=== PATIENT | female | born 2000 | race Caucasian/White ===

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

== ENCOUNTER 2021-09-12 22:17 | Inpatient (IN) | payer BC, OTHER ==
[~2021-09-12] VITALS: Ht 162.6 cm; Wt 97.5 kg
[2021-09-12] MEDS ORDERED: HYDR-3363 PO (22:29)
[2021-09-12] MEDS ORDERED: CITA20TA6 PO (22:29)
[2021-09-12] MEDS ORDERED: ISIB1TAB PO (22:29)
[2021-09-12] MEDS ORDERED: PANTOPRAZOLE 40MG VIAL IV ONE (23:45)
[2021-09-12] MEDS ORDERED: NS 1,000 ML IV ONE (23:45)
[2021-09-13 00:05] LABS: HCG, SERUM QUALITATIVE NEGATIVE (NEGATIVE)
[2021-09-13 00:14] LABS: BASO % 0.3 % (0.0-1.0); EOS # 0.1 10^3/uL (0.0-0.5); EOS % 1.3 % (0.0-3.0); HEMATOCRIT 38.6 % (36.0-47.0); HEMOGLOBIN 12.2 g/dl (12.0-15.5); LYMPH # 2.2 10^3/uL (1.5-5.0); LYMPH % 23.1 % (24.0-44.0); MEAN CORPUSCULAR HEMOGLOBIN 26.5 pg (27.0-33.0); MEAN CORPUSCULAR HGB CONC 31.6 g/dl (32.0-36.5); MEAN CORPUSCULAR VOLUME 83.7 fl (80.0-96.0); MONO # 0.5 10^3/uL (0.0-0.8); MONO % 5.5 % (2.0-8.0); NEUTROPHILS # 6.5 10^3/uL (1.5-8.5); NEUTROPHILS % 69.1 % (36.0-66.0); PLATELET COUNT, AUTOMATED 341 10^3/uL (150-450); RED BLOOD COUNT 4.61 10^6/uL (4.00-5.40); WHITE BLOOD COUNT 9.4 10^3/uL (4.0-10.0)
[2021-09-13 00:15] LABS: ALBUMIN 3.3 GM/DL (3.2-5.2); ALT/SGPT 58 U/L (12-78); BILIRUBIN,DIRECT 0.1 MG/DL (0.0-0.2); BILIRUBIN,TOTAL 0.3 MG/DL (0.2-1.0); BLOOD UREA NITROGEN 7 MG/DL (7-18); CALCIUM LEVEL 8.9 MG/DL (8.5-10.1); CARBON DIOXIDE LEVEL 27 MEQ/L (21-32); CHLORIDE LEVEL 109 MEQ/L (98-107); CREATININE FOR GFR 0.77 MG/DL (0.55-1.30); GLUCOSE, FASTING 92 MG/DL (70-100); LIPASE 1170 U/L (73-393); POTASSIUM SERUM 3.9 MEQ/L (3.5-5.1); SODIUM LEVEL 139 MEQ/L (136-145); TOTAL PROTEIN 6.5 GM/DL (6.4-8.2)
[2021-09-13] MEDS ORDERED: HOME MED LIST COMPLETE! XX SCH (01:40)
[2021-09-13] MEDS ORDERED: ACETAMINOPHEN TAB 650MG DOSE (2X325MG) PO PRN (01:45)
[2021-09-13] MEDS ORDERED: MAALOX 30 ML SUSP *UDC PO PRN (01:45)
[2021-09-13] MEDS ORDERED: MOM 30ML SUSPENSION UDC PO PRN (01:45)
[2021-09-13 01:54] LABS: RSV AMPLIFICATION NEGATIVE (NEGATIVE)
[2021-09-13] MEDS ORDERED: NORCO, ANEXSIA 5/325MG TABLET (HYDROcodone/ACETAMINOPHEN) PO PRN (02:00)
[2021-09-13] MEDS ORDERED: MORPHINE 4 MG/ML 1ML VIAL/SYRINGE IV PRN (02:00)
[2021-09-13 03:15] VITALS: BP 128/72
[2021-09-13] MEDS: NS 1,000 ML IV SCH ×4 (05:07→21:21)
[2021-09-13 06:22] LABS: BASO % 0.2 % (0.0-1.0); EOS # 0.1 10^3/uL (0.0-0.5); EOS % 1.3 % (0.0-3.0); HEMATOCRIT 35.4 % (36.0-47.0); HEMOGLOBIN 11.5 g/dl (12.0-15.5); LYMPH # 2.9 10^3/uL (1.5-5.0); LYMPH % 31.2 % (24.0-44.0); MEAN CORPUSCULAR HEMOGLOBIN 26.7 pg (27.0-33.0); MEAN CORPUSCULAR HGB CONC 32.5 g/dl (32.0-36.5); MEAN CORPUSCULAR VOLUME 82.1 fl (80.0-96.0); MONO # 0.5 10^3/uL (0.0-0.8); MONO % 5.9 % (2.0-8.0); NEUTROPHILS # 5.6 10^3/uL (1.5-8.5); NEUTROPHILS % 61.1 % (36.0-66.0); PLATELET COUNT, AUTOMATED 308 10^3/uL (150-450); RED BLOOD COUNT 4.31 10^6/uL (4.00-5.40); WHITE BLOOD COUNT 9.2 10^3/uL (4.0-10.0)
[2021-09-13 06:47] LABS: ALBUMIN 2.9 GM/DL (3.2-5.2); ALT/SGPT 45 U/L (12-78); BILIRUBIN,TOTAL 0.3 MG/DL (0.2-1.0); BLOOD UREA NITROGEN 6 MG/DL (7-18); CALCIUM LEVEL 8.5 MG/DL (8.5-10.1); CARBON DIOXIDE LEVEL 22 MEQ/L (21-32); CHLORIDE LEVEL 113 MEQ/L (98-107); GLUCOSE, FASTING 76 MG/DL (70-100); MAGNESIUM LEVEL 1.9 MG/DL (1.8-2.4); POTASSIUM SERUM 3.6 MEQ/L (3.5-5.1); SODIUM LEVEL 141 MEQ/L (136-145); TOTAL PROTEIN 6.1 GM/DL (6.4-8.2)
[2021-09-13 07:13] VITALS: BP 125/77
[2021-09-13] MEDS: KETOROLAC 30 MG/ML 1ML VIAL IV SCH ×2 (09:10→12:00)
[2021-09-13 10:28] LABS: LIPASE 590 U/L (73-393)
[2021-09-13] MEDS ORDERED: KETOROLAC 30 MG/ML 1ML VIAL IV PRN (15:00)
[2021-09-13 16:17] VITALS: BP 116/62
[2021-09-13 20:13] VITALS: BP 136/87
[2021-09-13] MEDS ORDERED: CitaloPRAM (CeleXA) 20 MG TAB PO SCH (21:00)
[2021-09-14 04:10] VITALS: BP 113/61
[2021-09-14] MEDS: NS 1,000 ML IV SCH (04:25)
[2021-09-14] MEDS ORDERED: HYDR-3715 PO ×2 (07:43→10:17)
[2021-09-14] MEDS ORDERED: SENO8.6T10 PO (07:46)
[2021-09-14 07:48] VITALS: BP 115/58
[2021-09-14 08:09] LABS: BASO % 0.1 % (0.0-1.0); EOS # 0.1 10^3/uL (0.0-0.5); EOS % 1.6 % (0.0-3.0); HEMATOCRIT 37.6 % (36.0-47.0); HEMOGLOBIN 11.9 g/dl (12.0-15.5); LYMPH # 2.7 10^3/uL (1.5-5.0); LYMPH % 35.1 % (24.0-44.0); MEAN CORPUSCULAR HEMOGLOBIN 26.4 pg (27.0-33.0); MEAN CORPUSCULAR HGB CONC 31.6 g/dl (32.0-36.5); MEAN CORPUSCULAR VOLUME 83.6 fl (80.0-96.0); MONO # 0.5 10^3/uL (0.0-0.8); MONO % 6.6 % (2.0-8.0); NEUTROPHILS # 4.3 10^3/uL (1.5-8.5); NEUTROPHILS % 56.5 % (36.0-66.0); PLATELET COUNT, AUTOMATED 310 10^3/uL (150-450); WHITE BLOOD COUNT 7.6 10^3/uL (4.0-10.0)
[2021-09-14 08:33] LABS: ALBUMIN 3.1 GM/DL (3.2-5.2); ALT/SGPT 32 U/L (12-78); AMYLASE 91 U/L (25-115); BILIRUBIN,TOTAL 0.3 MG/DL (0.2-1.0); BLOOD UREA NITROGEN 4 MG/DL (7-18); CALCIUM LEVEL 9.2 MG/DL (8.5-10.1); CARBON DIOXIDE LEVEL 24 MEQ/L (21-32); CHLORIDE LEVEL 111 MEQ/L (98-107); CREATININE FOR GFR 0.68 MG/DL (0.55-1.30); GLUCOSE, FASTING 82 MG/DL (70-100); LIPASE 311 U/L (73-393); SODIUM LEVEL 142 MEQ/L (136-145); TOTAL PROTEIN 6.1 GM/DL (6.4-8.2)
== END 2021-09-14 10:54 | disposition home or self-care (01) ==
LOC: M ED 22:17 → M ED INP 09-13 01:45 → M PCU 09-13 03:23
PROVIDERS: ADMIT Family Medicine; ATTEND General Practice
DX: K80.20 Calculus of gallbladder without cholecystitis without obstruction (principal); K85.10 Biliary acute pancreatitis without necrosis or infection; F32.A Depression, unspecified; F17.290 Nicotine dependence, other tobacco product, uncomplicated; E66.9 Obesity, unspecified; Z68.37 Body mass index [BMI] 37.0-37.9, adult; Z79.899 Other long term (current) drug therapy; Z88.1 Allergy status to other antibiotic agents

== ENCOUNTER 2021-10-11 16:50 | Inpatient (IN) | payer BC, OTHER ==
[~2021-10-11] VITALS: Ht 165.1 cm; Wt 94.8 kg
[~2021-10-11 16:50] MED LIST changes: +CITA20TA6 PO; +HYDR-3363 PO; +HYDR-3715 PO; +ISIB1TAB PO; +SENO8.6T10 PO
[2021-10-11] MEDS ORDERED: ACET-683 PO (17:00)
[2021-10-11] MEDS ORDERED: ONDANSETRON 4MG 2ML VIAL IV ONE (17:10)
[2021-10-11] MEDS ORDERED: NS 1,000 ML IV ONE (17:10)
[2021-10-11] MEDS ORDERED: KETOROLAC 30 MG/ML 1ML VIAL IV ONE (17:10)
[2021-10-11 17:35] LABS: BASO % 0.3 % (0.0-1.0); EOS # 0.1 10^3/uL (0.0-0.5); HEMATOCRIT 40.3 % (36.0-47.0); LYMPH # 1.6 10^3/uL (1.5-5.0); LYMPH % 21.2 % (24.0-44.0); MEAN CORPUSCULAR HEMOGLOBIN 26.6 pg (27.0-33.0); MEAN CORPUSCULAR HGB CONC 32.3 g/dl (32.0-36.5); MEAN CORPUSCULAR VOLUME 82.4 fl (80.0-96.0); MONO # 0.5 10^3/uL (0.0-0.8); MONO % 5.8 % (2.0-8.0); NEUTROPHILS # 5.5 10^3/uL (1.5-8.5); NEUTROPHILS % 71.4 % (36.0-66.0); PLATELET COUNT, AUTOMATED 307 10^3/uL (150-450); RED BLOOD COUNT 4.89 10^6/uL (4.00-5.40); WHITE BLOOD COUNT 7.7 10^3/uL (4.0-10.0)
[2021-10-11 18:17] LABS: ALBUMIN 3.6 GM/DL (3.2-5.2); BILIRUBIN,DIRECT 0.9 MG/DL (0.0-0.2); BILIRUBIN,TOTAL 1.3 MG/DL (0.2-1.0); TOTAL PROTEIN 6.8 GM/DL (6.4-8.2)
[2021-10-11 18:24] LABS: RSV AMPLIFICATION NEGATIVE (NEGATIVE)
[2021-10-11] MEDS ORDERED: MORPHINE 4 MG/ML 1ML VIAL/SYRINGE IV ONE (19:40)
[2021-10-11 21:10] LABS: AMORPHOUS SEDIMENT, URINE SMALL AMOUNT (NEGATIVE); HYALINE CAST, URINE NONE SEEN /lpf (0-1); MUCUS, URINE SMALL AMOUNT (NEGATIVE); RBC, URINE 0-1 /hpf (0-3); SQUAMOUS EPITHELIAL CELL URINE MOD AMOUNT /hpf (SMALL AMT)
[2021-10-11 21:11] LABS: BACTERIA, URINE SMALL AMOUNT
[2021-10-11] MEDS ORDERED: MOM 30ML SUSPENSION UDC PO PRN (21:40)
[2021-10-11] MEDS ORDERED: ACETAMINOPHEN TAB 650MG DOSE (2X325MG) PO PRN (21:40)
[2021-10-11] MEDS ORDERED: HOME MED LIST COMPLETE! XX SCH (22:15)
[2021-10-11] MEDS ORDERED: HYDR-3713 PO (22:15)
[2021-10-11] MEDS ORDERED: HYDR-3363 PO (22:15)
[2021-10-11] MEDS ORDERED: ERGO500029 PO (22:15)
[2021-10-12] MEDS: NS 1,000 ML IV SCH ×2 (00:46→05:22)
[2021-10-12] MEDS: HEPARIN SOD (PORCINE) 5000UNITS/ML 1ML VIAL/SYRINGE SC SCH ×3 (06:00→21:14)
[2021-10-12 06:58] LABS: HEMATOCRIT 36.5 % (36.0-47.0); HEMOGLOBIN 11.3 g/dl (12.0-15.5); MEAN CORPUSCULAR VOLUME 84.1 fl (80.0-96.0); PLATELET COUNT, AUTOMATED 271 10^3/uL (150-450); RED BLOOD COUNT 4.34 10^6/uL (4.00-5.40); WHITE BLOOD COUNT 6.6 10^3/uL (4.0-10.0)
[2021-10-12 07:39] LABS: ALT/SGPT 111 U/L (12-78); BILIRUBIN,TOTAL 0.5 MG/DL (0.2-1.0); BLOOD UREA NITROGEN 5 MG/DL (7-18); CALCIUM LEVEL 8.6 MG/DL (8.5-10.1); CARBON DIOXIDE LEVEL 28 MEQ/L (21-32); CHLORIDE LEVEL 110 MEQ/L (98-107); CREATININE FOR GFR 0.61 MG/DL (0.55-1.30); GLUCOSE, FASTING 77 MG/DL (70-100); POTASSIUM SERUM 3.6 MEQ/L (3.5-5.1); SODIUM LEVEL 142 MEQ/L (136-145); TOTAL PROTEIN 5.6 GM/DL (6.4-8.2)
[2021-10-12] MEDS: DOCUSATE SODIUM 100MG CAPSULE PO SCH ×2 (08:09→21:14)
[2021-10-12 08:50] VITALS: BP 115/77
[2021-10-12] MEDS ORDERED: ISOVUE-300 61% 50ML VIAL As Ordered ONE (15:35)
[2021-10-12] MEDS ORDERED: fentaNYL 100 MCG/2 ML INJECTION As Ordered ONE ×2 (15:51→17:15)
[2021-10-12] MEDS ORDERED: MIDAZOLAM INJ 2MG/2ML VIAL (J2250 PER 1MG) As Ordered ONE (15:51)
[2021-10-12] MEDS ORDERED: LIDOCAINE 2% 100MG/5ML SDV (FOR ANES.) As Ordered ONE (15:51)
[2021-10-12] MEDS ORDERED: ROCURONIUM BROMIDE 50 MG/5 ML VIAL As Ordered ONE (15:51)
[2021-10-12] MEDS ORDERED: ONDANSETRON 4MG 2ML VIAL As Ordered ONE (15:51)
[2021-10-12] MEDS ORDERED: propofoL 200 MG/20 ML VIAL As Ordered ONE (15:51)
[2021-10-12] MEDS ORDERED: dexameTHASONE 4 MG/ML 1ML VIAL (J1100 PER 1MG) As Ordered ONE (15:51)
[2021-10-12] MEDS ORDERED: SUGAMMADEX SODIUM 500 MG/5 ML VIAL (BRIDION) As Ordered ONE (17:01)
[2021-10-12] MEDS ORDERED: METOCLOPRAMIDE INJ 10MG/2ML VIAL (J2765 PER 1) IV PRN (17:45)
[2021-10-12] MEDS ORDERED: ONDANSETRON 4MG 2ML VIAL IV PRN (17:45)
[2021-10-12] MEDS ORDERED: fentaNYL 100 MCG/2 ML INJECTION IV PRN (17:45)
[2021-10-12] MEDS ORDERED: LR 1,000 ML IV SCH (17:45)
[2021-10-12] MEDS ORDERED: LR 1,000 ML IV ONE (18:05)
[2021-10-12 18:39] VITALS: BP 126/69
[2021-10-12 19:10] VITALS: BP 127/65
[2021-10-12 20:00] VITALS: BP 118/54
[2021-10-12 21:00] VITALS: BP 100/57
[2021-10-12 22:00] VITALS: BP 119/57
[2021-10-13 02:00] VITALS: BP 117/58
[2021-10-13 06:00] VITALS: BP 124/72
[2021-10-13] MEDS: HEPARIN SOD (PORCINE) 5000UNITS/ML 1ML VIAL/SYRINGE SC SCH (06:17)
[2021-10-13] MEDS ORDERED: PANTOPRAZOLE 40MG VIAL IV SCH (08:00)
[2021-10-13] MEDS ORDERED: NS 1,000 ML IV SCH (08:25)
[2021-10-13] MEDS: DOCUSATE SODIUM 100MG CAPSULE PO SCH (08:33)
[2021-10-13 09:10] LABS: HEMATOCRIT 38.2 % (36.0-47.0); MEAN CORPUSCULAR HGB CONC 31.4 g/dl (32.0-36.5); MEAN CORPUSCULAR VOLUME 82.7 fl (80.0-96.0); PLATELET COUNT, AUTOMATED 318 10^3/uL (150-450); RED BLOOD COUNT 4.62 10^6/uL (4.00-5.40); WHITE BLOOD COUNT 7.6 10^3/uL (4.0-10.0)
[2021-10-13 09:40] LABS: ALBUMIN 3.2 GM/DL (3.2-5.2); ALT/SGPT 82 U/L (12-78); BILIRUBIN,TOTAL 0.3 MG/DL (0.2-1.0); BLOOD UREA NITROGEN 3 MG/DL (7-18); CALCIUM LEVEL 9.3 MG/DL (8.5-10.1); CARBON DIOXIDE LEVEL 27 MEQ/L (21-32); CHLORIDE LEVEL 105 MEQ/L (98-107); CREATININE FOR GFR 0.58 MG/DL (0.55-1.30); GLUCOSE, FASTING 100 MG/DL (70-100); POTASSIUM SERUM 3.5 MEQ/L (3.5-5.1); SODIUM LEVEL 135 MEQ/L (136-145); TOTAL PROTEIN 6.4 GM/DL (6.4-8.2)
[2021-10-13] MEDS ORDERED: PROT1TAB2 PO (12:07)
== END 2021-10-13 14:20 | disposition home or self-care (01) ==
LOC: EDBD 16:50 → M ED 16:50 → M ED INP 21:37 → ENRESERV 10-12 08:16 → M 4MAIN 10-12 08:48
PROVIDERS: ADMIT Family Medicine; ATTEND Family Medicine
PROC: 0FC98ZZ Extirpation of Matter from Common Bile Duct, Via Natural or Artificial Opening Endoscopic (ICD-10-PCS; principal; 2021-10-12 16:00)
DX: K80.50 Calculus of bile duct without cholangitis or cholecystitis without obstruction (principal); U07.1 COVID-19; K83.8 Other specified diseases of biliary tract

== ENCOUNTER 2021-10-27 09:09 | Day surgery (SDC) | payer BC, OTHER ==
[~2021-10-27] VITALS: Ht 170.2 cm; Wt 92.5 kg
[~2021-10-27 09:09] MED LIST changes: +BUPIVACAINE/EPIN 0.25% 30 ML VIAL As Ordered ONE; +ERGO500029 PO; +HYDR-3713 PO; +PROT1TAB2 PO; +ceFAZolin SOD 2 GM in IV 1 EA IV ONE
[2021-10-27] MEDS ORDERED: LR 1,000 ML IV SCH (09:20)
[2021-10-27] MEDS ORDERED: ePHEDrine SULFATE 25 MG/5 ML(5MG/ML) SYRINGE As Ordered ONE (10:21)
[2021-10-27] MEDS ORDERED: dexameTHASONE 4 MG/ML 1ML VIAL (J1100 PER 1MG) As Ordered ONE (10:21)
[2021-10-27] MEDS ORDERED: ROCURONIUM BROMIDE 50 MG/5 ML VIAL As Ordered ONE ×2 (10:21→12:21)
[2021-10-27] MEDS ORDERED: LIDOCAINE 2% 100MG/5ML SDV (FOR ANES.) As Ordered ONE (10:21)
[2021-10-27] MEDS ORDERED: MIDAZOLAM INJ 2MG/2ML VIAL (J2250 PER 1MG) As Ordered ONE (10:21)
[2021-10-27] MEDS ORDERED: ACETAMINOPHEN 1000MG 100ML IV BTL (OFIRMEV) (J0131 PER 10MG) As Ordered ONE (10:21)
[2021-10-27] MEDS ORDERED: fentaNYL 250 MCG/5 ML INJECTION As Ordered ONE (10:21)
[2021-10-27] MEDS ORDERED: ONDANSETRON 4MG 2ML VIAL As Ordered ONE (10:21)
[2021-10-27] MEDS ORDERED: SUGAMMADEX SODIUM 500 MG/5 ML VIAL (BRIDION) As Ordered ONE (10:23)
[2021-10-27] MEDS ORDERED: KETOROLAC 60MG 2ML VIAL As Ordered ONE (10:30)
[2021-10-27] MEDS ORDERED: oxyCODONE 5MG TAB PO PRN (10:45)
[2021-10-27 11:53] VITALS: BP 115/67
[2021-10-27] MEDS ORDERED: NORCO, ANEXSIA 5/325MG TABLET (HYDROcodone/ACETAMINOPHEN) PO PRN ×2 (12:30)
[2021-10-27] MEDS ORDERED: NS 1,000 ML IV SCH (12:30)
== END 2021-10-27 12:14 | disposition home or self-care (01) ==
LOC: M SDC 09:09
PROVIDERS: ATTEND Surgery
DX: K80.10 Calculus of gallbladder with chronic cholecystitis without obstruction (principal); F41.9 Anxiety disorder, unspecified; F32.A Depression, unspecified; Z88.1 Allergy status to other antibiotic agents
CPT/HCPCS: 47562; 81025; 87635; 88304; J0131; J0690; J1100; J1885; J2250; J2405; J3010

== ENCOUNTER → 2022-09-17 | Outpatient (REF) | payer BC, OTHER ==
[~2022-09-17] MED LIST changes: -BUPIVACAINE/EPIN 0.25% 30 ML VIAL As Ordered ONE; -ceFAZolin SOD 2 GM in IV 1 EA IV ONE
[2022-09-17 19:10] LABS: CHOLESTEROL RISK RATIO 3.72 (<5); HDL CHOLESTEROL 42.9 MG/DL (>40); LDL CHOLESTEROL 69.5 MG/DL (<100); NON-HDL-C 117.1 MG/DL
[2022-09-17 19:12] LABS: THYROID STIMULATING HORMONE 2.95 uIU/ML (0.48-4.17)
[2022-09-17 19:13] LABS: HEMOGLOBIN A1c 5.3 % (4.0-6.0)
== END ==
LOC: M LAB REF 18:04
PROVIDERS: ATTEND Pediatrics
DX: F41.9 Anxiety disorder, unspecified (principal); E66.9 Obesity, unspecified

== ENCOUNTER 2022-09-24 20:26 | Emergency (ER) | payer BC, OTHER ==
[~2022-09-24] VITALS: Ht 162.6 cm; Wt 106.5 kg
[2022-09-24 20:27] VITALS: BP 164/96; TEMP 101.8; O2SAT 97
== END 2022-09-24 21:19 | disposition left against medical advice (07) ==
LOC: M ED 20:26
DX: U07.1 COVID-19 (principal); Z53.21 Procedure and treatment not carried out due to patient leaving prior to being seen by health care provider

== ENCOUNTER → 2022-12-22 | Outpatient (CLI) | payer BC, OTHER ==
[2022-12-22 16:03] LABS: HEMATOCRIT 37.6 % (36.0-47.0); HEMOGLOBIN 12.1 g/dl (12.0-15.5); MEAN CORPUSCULAR HEMOGLOBIN 26.1 pg (27.0-33.0); MEAN CORPUSCULAR HGB CONC 32.2 g/dl (32.0-36.5); PLATELET COUNT, AUTOMATED 372 10^3/uL (150-450); RED BLOOD COUNT 4.64 10^6/uL (4.00-5.40); WHITE BLOOD COUNT 7.8 10^3/uL (4.0-10.0)
[2022-12-22 17:03] LABS: HIV 1&2 SCREEN NEGATIVE (NEGATIVE)
[2022-12-22 17:10] LABS: HEPATITIS C VIRUS ABY INDEX 0.05 INDEX (<0.8)
[2022-12-22 22:06] LABS: GC DNA AMPLIFICATION NEGATIVE (NEGATIVE)
== END ==
LOC: M PLALAB 14:13
PROVIDERS: ATTEND Advanced Practice Midwife
DX: Z34.82 Encounter for supervision of other normal pregnancy, second trimester (principal)

== ENCOUNTER → 2023-02-03 | Outpatient (CLI) | payer BC, OTHER | LOC: M WHC 14:02 | PROVIDERS: ATTEND Advanced Practice Midwife | DX: Z34.92 Encounter for supervision of normal pregnancy, unspecified, second trimester (principal) ==

== ENCOUNTER → 2023-02-25 | Outpatient (REF) | payer OTHER ==
[2023-02-25 19:47] LABS: TOTAL PROTEIN,RANDOM URINE 27.1 MG/DL (0.0-14.0)
[2023-02-25 19:52] LABS: CREATININE,RANDOM URINE 137.6 MG/DL
== END ==
LOC: M PLALAB 13:51
PROVIDERS: ATTEND Advanced Practice Midwife
DX: O10.912 Unspecified pre-existing hypertension complicating pregnancy, second trimester (principal)

== ENCOUNTER → 2023-02-25 | Outpatient (CLI) | payer BC, OTHER ==
[2023-02-25 15:46] LABS: HEMOGLOBIN 10.9 g/dl (12.0-15.5); MEAN CORPUSCULAR HEMOGLOBIN 25.9 pg (27.0-33.0); MEAN CORPUSCULAR HGB CONC 32.1 g/dl (32.0-36.5); MEAN CORPUSCULAR VOLUME 80.8 fl (80.0-96.0); PLATELET COUNT, AUTOMATED 383 10^3/uL (150-450); RED BLOOD COUNT 4.21 10^6/uL (4.00-5.40); WHITE BLOOD COUNT 11.2 10^3/uL (4.0-10.0)
[2023-02-25 16:04] LABS: URIC ACID 3.9 MG/DL (3.1-7.8)
[2023-02-25 16:06] LABS: LDH LACTATE DEHYDROGENASE 132 U/L (120-246)
[2023-02-25 16:07] LABS: ALT/SGPT 12 U/L (7.0-40); AST/SGOT < 8 U/L (<34); BILIRUBIN,TOTAL 0.2 MG/DL (0.3-1.2); CREATININE FOR GFR 0.52 MG/DL (0.55-1.30); GLOMERULAR FILTRATION RATE > 60.0 (>60)
== END ==
LOC: M PLALAB 12:40
PROVIDERS: ATTEND Advanced Practice Midwife
DX: O99.212 Obesity complicating pregnancy, second trimester (principal); O10.912 Unspecified pre-existing hypertension complicating pregnancy, second trimester

== ENCOUNTER → 2023-03-10 | Outpatient (CLI) | payer BC, OTHER | LOC: M WHC 13:52 | PROVIDERS: ATTEND Advanced Practice Midwife | DX: O99.212 Obesity complicating pregnancy, second trimester (principal); Z3A.24 24 weeks gestation of pregnancy; E66.9 Obesity, unspecified ==

== ENCOUNTER → 2023-03-30 | Outpatient (CLI) | payer BC, OTHER ==
[2023-03-30 15:40] LABS: HEMATOCRIT 32.1 % (36.0-47.0); HEMOGLOBIN 9.9 g/dl (12.0-15.5); MEAN CORPUSCULAR HEMOGLOBIN 24.6 pg (27.0-33.0); MEAN CORPUSCULAR HGB CONC 30.8 g/dl (32.0-36.5); MEAN CORPUSCULAR VOLUME 79.7 fl (80.0-96.0); PLATELET COUNT, AUTOMATED 408 10^3/uL (150-450); RED BLOOD COUNT 4.03 10^6/uL (4.00-5.40); WHITE BLOOD COUNT 12.1 10^3/uL (4.0-10.0)
== END ==
LOC: M PLALAB 13:00
PROVIDERS: ATTEND Advanced Practice Midwife
DX: O10.012 Pre-existing essential hypertension complicating pregnancy, second trimester (principal)

== ENCOUNTER → 2023-04-04 | Outpatient (CLI) | payer BC, OTHER | LOC: M LAB 07:32 | PROVIDERS: ATTEND Advanced Practice Midwife | DX: O10.012 Pre-existing essential hypertension complicating pregnancy, second trimester (principal); O99.810 Abnormal glucose complicating pregnancy ==

== ENCOUNTER 2023-04-24 13:01 | Outpatient (CLI) | payer BC, OTHER ==
[~2023-04-24] VITALS: Ht 162.6 cm; Wt 119.6 kg
[2023-04-24 13:23] VITALS: BP 128/73
[2023-04-24] MEDS ORDERED: PRENTAB9 PO (13:30)
[2023-04-24] MEDS ORDERED: LABE200T5 PO (13:30)
[2023-04-24] MEDS ORDERED: ASPI81CH33 PO (13:31)
[2023-04-24] MEDS ORDERED: HOME MED LIST COMPLETE! XX SCH (13:35)
[2023-04-24] MEDS: ACETAMINOPHEN 500 MG TAB PO ONE (13:58)
[2023-04-24 14:06] LABS: APPEARANCE, URINE HAZY (CLEAR); BACTERIA, URINE AUTO NEGATIVE (NEGATIVE); BILIRUBIN, URINE AUTO NEGATIVE (NEGATIVE); BLOOD, URINE BLOOD NEGATIVE (NEGATIVE); COLOR, URINE YELLOW (YELLOW); GLUCOSE, URINE (UA) AUTO NEGATIVE (NEGATIVE); KETONE, URINE AUTO NEGATIVE (NEGATIVE); LEUKOCYTE ESTERASE, URINE AUTO 2+ (NEGATIVE); MUCUS, URINE SMALL (NEGATIVE); NITRITE, URINE AUTO NEGATIVE (NEGATIVE); PROTEIN, URINE AUTO NEGATIVE (NEGATIVE); RBC, URINE AUTO 0 /HPF (0-3); SPECIFIC GRAVITY URINE AUTO 1.017 (1.002-1.035); SQUAMOUS EPITHELIAL CELL UR AU 4 /HPF (0-6); UROBILINOGEN, URINE AUTO 0.2 mg/dL (0.0-2.0); WBC, URINE AUTO 2 /HPF (0-3)
[2023-04-24 14:57] VITALS: BP 108/66
== END 2023-04-24 15:05 | disposition home or self-care (01) ==
LOC: M LDO 13:01
PROVIDERS: ATTEND Obstetrics & Gynecology
DX: O26.893 Other specified pregnancy related conditions, third trimester (principal); O10.013 Pre-existing essential hypertension complicating pregnancy, third trimester; Z3A.30 30 weeks gestation of pregnancy
CPT/HCPCS: 59025; 81001; 87086; G0463

== ENCOUNTER → 2023-05-09 | Outpatient (CLI) | payer BC ==
[~2023-05-09] MED LIST changes: +ASPI81CH33 PO; +LABE200T5 PO; +PRENTAB9 PO
== END ==
LOC: M RAD 13:53
PROVIDERS: ATTEND Advanced Practice Midwife
DX: O10.013 Pre-existing essential hypertension complicating pregnancy, third trimester (principal)

== ENCOUNTER → 2023-05-13 | Outpatient (CLI) | payer BC | LOC: M WHC 10:09 | PROVIDERS: ATTEND Obstetrics & Gynecology | DX: O28.8 Other abnormal findings on antenatal screening of mother (principal); Z3A.33 33 weeks gestation of pregnancy ==

== ENCOUNTER 2023-05-24 15:43 | Outpatient (CLI) | payer BC ==
[~2023-05-24] VITALS: Ht 167.6 cm; Wt 123.0 kg
[2023-05-24] MEDS ORDERED: HOME MED LIST COMPLETE! XX SCH (15:55)
[2023-05-24 16:04] VITALS: BP 121/59
[2023-05-24] MEDS: ACETAMINOPHEN 500 MG TAB PO ONE (16:32)
[2023-05-24 16:35] VITALS: BP 96/53
[2023-05-24 16:47] LABS: APPEARANCE, URINE HAZY (CLEAR); BACTERIA, URINE AUTO 1+ (NEGATIVE); BILIRUBIN, URINE AUTO NEGATIVE (NEGATIVE); BLOOD, URINE BLOOD NEGATIVE (NEGATIVE); COLOR, URINE YELLOW (YELLOW); GLUCOSE, URINE (UA) AUTO NEGATIVE (NEGATIVE); KETONE, URINE AUTO NEGATIVE (NEGATIVE); LEUKOCYTE ESTERASE, URINE AUTO 1+ (NEGATIVE); MUCUS, URINE SMALL (NEGATIVE); NITRITE, URINE AUTO NEGATIVE (NEGATIVE); PROTEIN, URINE AUTO NEGATIVE (NEGATIVE); RBC, URINE AUTO 1 /HPF (0-3); SPECIFIC GRAVITY URINE AUTO 1.014 (1.002-1.035); SQUAMOUS EPITHELIAL CELL UR AU 4 /HPF (0-6); UROBILINOGEN, URINE AUTO 0.2 mg/dL (0.0-2.0); WBC, URINE AUTO 1 /HPF (0-3)
[2023-05-24 18:04] LABS: HEMATOCRIT 31.3 % (36.0-47.0); HEMOGLOBIN 9.6 g/dl (12.0-15.5); MEAN CORPUSCULAR HEMOGLOBIN 24.7 pg (27.0-33.0); MEAN CORPUSCULAR HGB CONC 30.7 g/dl (32.0-36.5); MEAN CORPUSCULAR VOLUME 80.5 fl (80.0-96.0); PLATELET COUNT, AUTOMATED 293 10^3/uL (150-450); RED BLOOD COUNT 3.89 10^6/uL (4.00-5.40); WHITE BLOOD COUNT 8.1 10^3/uL (4.0-10.0)
[2023-05-24 18:26] LABS: URIC ACID 4.4 MG/DL (3.1-7.8)
[2023-05-24 18:28] LABS: LDH LACTATE DEHYDROGENASE 121 U/L (120-246)
[2023-05-24 18:29] LABS: ALT/SGPT 12 U/L (7.0-40); AST/SGOT 10 U/L (<34); BILIRUBIN,TOTAL 0.2 MG/DL (0.3-1.2); CREATININE FOR GFR 0.61 MG/DL (0.55-1.30); GLOMERULAR FILTRATION RATE > 60.0 (>60)
[2023-05-24 18:36] LABS: TOTAL PROTEIN,RANDOM URINE 13.6 MG/DL (0.0-14.0)
[2023-05-24 18:41] LABS: CREATININE,RANDOM URINE 100.4 MG/DL
== END 2023-05-24 18:12 | disposition home or self-care (01) ==
LOC: M LDO 15:43
PROVIDERS: ATTEND Obstetrics & Gynecology
DX: O10.013 Pre-existing essential hypertension complicating pregnancy, third trimester (principal); R51.0 Headache with orthostatic component, not elsewhere classified; O26.893 Other specified pregnancy related conditions, third trimester; Z3A.34 34 weeks gestation of pregnancy
CPT/HCPCS: 36415; 59025; 81001; 82247; 82570; 83615; 84156; 84450; 84460; 84550; 85027; G0463

== ENCOUNTER 2023-05-29 17:24 | Outpatient (CLI) | payer BC ==
[~2023-05-29] VITALS: Ht 160 cm; Wt 126.3 kg
[2023-05-29] MEDS ORDERED: NOXI1TAB PO (17:49)
[2023-05-29] MEDS ORDERED: FERR325T3 PO (17:49)
[2023-05-29] MEDS ORDERED: HOME MED LIST COMPLETE! XX SCH (17:50)
[2023-05-29 17:52] VITALS: BP 136/62; O2SAT 99
[2023-05-29 18:09] VITALS: BP 152/73
[2023-05-29 18:24] LABS: HEMATOCRIT 32.9 % (36.0-47.0); HEMOGLOBIN 10.1 g/dl (12.0-15.5); MEAN CORPUSCULAR HEMOGLOBIN 24.3 pg (27.0-33.0); MEAN CORPUSCULAR HGB CONC 30.7 g/dl (32.0-36.5); MEAN CORPUSCULAR VOLUME 79.3 fl (80.0-96.0); PLATELET COUNT, AUTOMATED 314 10^3/uL (150-450); RED BLOOD COUNT 4.15 10^6/uL (4.00-5.40); WHITE BLOOD COUNT 9.1 10^3/uL (4.0-10.0)
[2023-05-29 18:39] LABS: TOTAL PROTEIN,RANDOM URINE 12.7 MG/DL (0.0-14.0)
[2023-05-29 18:41] VITALS: BP 136/72
[2023-05-29 18:50] LABS: URIC ACID 4.5 MG/DL (3.1-7.8)
[2023-05-29 18:52] LABS: LDH LACTATE DEHYDROGENASE 126 U/L (120-246)
[2023-05-29 18:53] LABS: ALT/SGPT 11 U/L (7.0-40); AST/SGOT 15 U/L (<34); BILIRUBIN,TOTAL 0.2 MG/DL (0.3-1.2); CREATININE FOR GFR 0.54 MG/DL (0.55-1.30); GLOMERULAR FILTRATION RATE > 60.0 (>60)
== END 2023-05-29 19:02 | disposition home or self-care (01) ==
LOC: M LDO 17:24
PROVIDERS: ATTEND Specialist
DX: O10.013 Pre-existing essential hypertension complicating pregnancy, third trimester (principal); Z3A.35 35 weeks gestation of pregnancy
CPT/HCPCS: 59025; 82247; 82570; 83615; 84156; 84450; 84460; 84550; 85027; G0463

== ENCOUNTER → 2023-06-03 | Outpatient (REF) | payer BC ==
[~2023-06-03] MED LIST changes: +FERR325T3 PO; +NOXI1TAB PO
== END ==
LOC: M SFHCWAGY 12:20
PROVIDERS: ATTEND Obstetrics & Gynecology
DX: O10.913 Unspecified pre-existing hypertension complicating pregnancy, third trimester (principal)

== ENCOUNTER → 2024-05-09 | Outpatient (REF) | payer BC ==
[~2024-05-09] MED LIST changes: +COLA100C5 PO; +FERR1TAB8 PO; +OXYC-517 PO
== END ==
LOC: M PLALAB 14:20
PROVIDERS: ATTEND Obstetrics & Gynecology
DX: Z01.419 Encounter for gynecological examination (general) (routine) without abnormal findings (principal)

== ENCOUNTER → 2024-08-30 | Outpatient (REF) | payer OTHER ==
[2024-08-30 15:23] LABS: ALT/SGPT 18 U/L (7.0-40); AST/SGOT 15 U/L (<34); CALCIUM LEVEL 9.4 MG/DL (8.5-10.1); CARBON DIOXIDE LEVEL 27 MMOL/L (20-31); CHLORIDE LEVEL 106 MMOL/L (98-107); CREATININE FOR GFR 0.70 MG/DL (0.55-1.30); GLOMERULAR FILTRATION RATE > 90.0 (>60); POTASSIUM SERUM 4.4 MMOL/L (3.5-5.1); SODIUM LEVEL 141 MMOL/L (136-145)
[2024-08-30 15:58] LABS: ESTIMATED AVERAGE GLUCOSE 105.0 MG/DL (60-110)
== END ==
LOC: M LAB REF 14:25
PROVIDERS: ATTEND Student in an Organized Health Care Education/Training Program
DX: Z68.42 Body mass index [BMI] 45.0-49.9, adult (principal)

== ENCOUNTER → 2024-09-28 | Outpatient (REF) | payer OTHER ==
[2024-09-28 13:22] LABS: Trichomonas vaginalis (AMP) NOT DETECTED (NEGATIVE)
[2024-09-28 13:46] LABS: GC DNA AMPLIFICATION NEGATIVE (NEGATIVE)
[2024-10-01 12:22] LABS: HSV 1 IGG TYPE SPECIFIC 29.10 index (<0.90); HSV 2 IGG TYPE SPECIFIC < 0.90 index (<0.90)
== END ==
LOC: M LAB REF 11:44
PROVIDERS: ATTEND Student in an Organized Health Care Education/Training Program
DX: R30.0 Dysuria (principal); B00.9 Herpesviral infection, unspecified

== ENCOUNTER → 2025-02-13 | Outpatient (REF) | payer OTHER ==
[~2025-02-13] MED LIST changes: -LABE200T5 PO; +LABE200T86 PO
[2025-02-13 16:59] LABS: Trichomonas vaginalis (AMP) NOT DETECTED (NEGATIVE)
[2025-02-13 17:22] LABS: GC DNA AMPLIFICATION NEGATIVE (NEGATIVE)
== END ==
LOC: M LAB REF 15:37
PROVIDERS: ATTEND Physician Assistant
DX: Z20.2 Contact with and (suspected) exposure to infections with a predominantly sexual mode of transmission (principal)